=== PATIENT | female | born 1965 | race Caucasian/White ===

== ENCOUNTER 2024-04-26 15:18 | Inpatient (IN) | payer OTHER, SELFPAY ==
[2024-04-26 10:59] VITALS: BP 178/89
--- NOTE | 2024-04-26 11:35 | ED.GENMED ---
History of Present Illness
General
Chief Complaint: Psychiatric Problem
Source: patient and other (Crisis staff)
Exam Limitations: none
Time Seen by Provider: 04/26/24 11:29
Nursing documentation reviewed up to this point in time: agreed with
Travel History
Have you had any contact with someone who has COVID-19?: No
Do you have any symptoms of coronavirus? Fever > 100 degrees, chills, cough, shortness of breath, sore throat, loss of taste or smell, muscle aches, or headache?: No
History of Present Illness
History of Present Illness:
58-year-old female with history of HTN, anemia, pancreatitis, DVT, chronic alcohol use disorder, smoker, presented to [facility] who states her boyfriend dropped her off because she was tearful he may be breaking up with her, Kenn looked at her past
history and as she was feeling out paperwork he noted her shaking and asked her if she had a drink and she told him she had a shot of vodka earlier this morning and when asked if she was in withdrawal and she said 'yes I feel horrible.' Zane states
she also said she has pain in her legs.
Pt presents alert and oriented, a little disheveled, hands tremulous, states 'I am fighting with my boyfriend and he told me to move out and I have no place to go.'
She does complain of pain posterior aspect both thighs, denies chest pain or trouble breathing. She does say she wants to kill herself but has no plan, denies HI.
She feels nauseous but has not vomited. She states she frequently has tremors
Admits to alcohol misuse. Had 'four strong vodka drinks' last night and 'a shot' of vodka this 11 a.m.
States she would like rehab
States although she knows she should not do it she takes 3-4 Aleve a day for generalized pain, states her leg pain is chronic.
She states she has been on Eliquis for 'a few years,' but she talk to her wholesale buyer Dr. Silvestre last week because she was complaining of bruising on her arms and she was told to stop her Eliquis so she stopped it 'a couple days ago.'
Past History
Past History
ED Past Medical History: HTN, Psychiatric (Alcohol use disorder, pancreatitis,), Other (Liver thrombosis) and Other (DVT)
ED Past Surgical History: Gynecological and Other (Breast augmentation/hernia)
Social History
Tobacco: Smoker
Alcohol: Daily
Drug: Marijuana
Personal: Single
Living: with roommate
Employment: Employed ([employer] )
Review of Systems
Review of Systems
Allergies reviewed?: Yes
All Other Systems: ROS reviewed and negative except as documented in HPI and ROS
Constitutional: Denies fever
Respiratory: Denies trouble breathing
Cardiac: Denies chest pain
ABD/GI: Reports nausea; Denies abdominal pain, vomiting, bloody stools or black stools
: Denies dysuria or difficulty voiding
Musculoskeletal: Reports other (pain in both legs)
Skin: Reports no symptoms
Neurological: Reports other (tremors hands); Denies dizzy, headache, weakness or numbness
Phy Exam
Physical Exam
Physical Exam:
GENERAL: No acute distress. A&Ox3.
CONSTITUTIONAL: Afebrile.
EYES: PERRL, conjunctivae normal
Neck: Supple
ENMT: moist mucus membranes, Pharynx nl
RESPIRATORY: Regular respirations, nonlabored, lungs clear.
CARDIOVASCULAR: Regular rate and rhythm, no murmurs, no rubs.
GI: Soft, nontender, normal BS
MUSCULOSKELETAL: Legs are without swelling, redness or warmth, normal ROM, tender to palpation posterior left thigh and right calf. Moves with ease. Well perfused.
SKIN: Warm, dry, pink
PSYCH: Depressed, anxious mood and affect. Mildly dishevelled, interactive and appropriate
NEUROLOGIC: Awake, alert and oriented. Speech clear. No focal neurological deficits. Mild to moderate hand tremors w outstretched hands. Ambulates well with steady gait.
Scores
Withdrawal Assessment of Alcohol
Withdrawal Assessment Completed?: Yes
Nausea and Vomiting: Mild nausea with no vomiting
Tactile Disturbances: None
Tremor: Moderate, with patient's arms extended
Auditory Disturbances: Not present
Paroxysmal Sweats: No sweat visible
Visual Disturbances: Not present
Anxiety: Mild anxiety
Headache, Fullness in Head: Not present
Agitation: Normal activity
Orientation and clouding of sensorium: Oriented and can do serial additions
Total CIWA Score: 6
Alcohol Withdrawal Medication Recommendation: Equal to MSAS Score 0-4. Monitor & re-assess q2hrs, NO MEDICATION NEEDED
Course
Orders/Labs/Results
Orders:
Orders
04/26/24 11:34
0.9% Sodium Chloride 1000 ml [Nss] 1,000 ml IV BOLUS
04/26/24 11:55
Acetaminophen Urgent
Alcohol Urgent
Complete Blood Count/With Diff Urgent
Comprehensive Metabolic Panel Urgent
D-Dimer Urgent
Lipase Urgent
Salicylate Urgent
04/26/24 12:12
Urinalysis Reflex To Culture Urgent
Date Specimen was Collected: 04/26/24
Time Specimen was Collected: 12:10
Urine Drug Abuse Screen Urgent
Date Specimen was Collected: 04/26/24
Time Specimen was Collected: 12:10
04/26/24 14:10
Add On- LAB Routine
Tests Added?: urine Osm, urine sodium
04/26/24 14:21
Admit/Transfer Patient As Directed
Co-Sign Provider:
Level of Care: Inpatient admission
Assign to:: IMU- Intermediate Care
Physician / Group: frank arce
Diagnosis: alcohol withdrawal
Reason for Hospitalization: alcohol withdrawal
Expected length of stay greater than two midnights?: Yes
ELOS- Estimated Length of Stay in days: 3
I certify the patient meets the requirements for IP care: Yes
04/26/24 14:22
Code Status As Directed
Resuscitation Status: Full Code
04/26/24 14:27
Lactate Level [Lactic Acid] Urgent
Blood Culture Q30M
ANMOL Source: Blood/Venous
Specimen Description:
04/26/24 14:31
Add On- LAB Urgent
Tests Added?: Urine sodium, urine osmolality, serum osmolality
04/26/24 14:32
Add On- LAB Urgent
Tests Added?: TSH
04/26/24 14:45
Blood Culture Q30M
ANMOL Source: Blood/Venous
Specimen Description:
04/26/24 14:48
US Abd W Abd Doppler Routine
Comment:
Reason For Exam: hxt of portal htn, portal thrombosis.
04/26/24 14:50
PSYCHIATRY CONSULT Routine
Consulting Provider: Elsa Michelle
Was physician already notified: Yes
04/26/24 14:52
Serum Osmolality Stat
Urine Osmolality Random [Osmolality, Random Urine] Stat
04/26/24 14:54
Urine Sodium Stat
04/26/24 14:55
C difficile Antigen & Toxins Urgent
ANMOL Source: Feces/Stool
Specimen Description:
Norovirus by PCR Stat
ANMOL Source: Feces/Stool
Specimen Description:
Ova & Parasites Giardia/Crypto AG [Giardia/Cryptosporidium Ag] Routine
ANMOL Source: Feces/Stool
Specimen Description:
Stool Culture Routine
ANMOL Source: Feces/Stool
Specimen Description:
Stool For WBC Routine
ANMOL Source: Feces/Stool
Specimen Description:
Yersinia Culture-Stool Stat
ANMOL Source: Feces/Stool
Specimen Description:
Arms, right US [US Periph Venous UPPER Ext RT] Urgent
Comment:
Reason For Exam: pain
04/26/24 15:00
Nicotine [Nicoderm Transdermal] 21 mg TRANSDERM DAILY
04/28/24 11:00
DC Protocol for Telemetry ONCE
Abnormal Lab Results
04/26/24
11:55
WBC 16.2 H 10^3/uL
(4.8-10.8)
RBC 3.99 L 10^6/uL
(4.20-5.40)
Hgb 9.8 L g/dL
(12.0-16.0)
Hct 30.6 L %
(37.0-47.0)
MCV 76.7 L fL
(81.0-99.0)
MCH 24.6 L pg
(27.0-31.0)
MCHC 32.0 L g/dL
(33.0-37.0)
RDW 17.0 H %
(11.5-14.5)
Abs Immat Gran (auto) 0.1 H 10^3/uL
(0-0.05)
Absolute Neuts (auto) 13.1 H 10^3/uL
(1.4-6.5)
Absolute Monos (auto) 1.8 H 10^3/uL
(0.1-0.6)
Neutrophils % 81.0 H %
(42.2-75.2)
Lymphocytes % 7.4 L %
(20.5-51.1)
Monocytes % 10.8 H %
(1.7-9.3)
Sodium 125 L mmol/L
(135-145)
Chloride 90 L mmol/L
(98-107)
Glucose 112 H mg/dl
(70-99)
AST 45 H U/L
(14-36)
Alkaline Phosphatase 145 H U/L
(38-126)
Salicylates < 1.0 L mg/dl
(2.0-20.0)
Acetaminophen < 10 L ug/ml
(10-30)
04/26/24 11:55
04/26/24 11:55
Vital Signs
Initial and Last Documented VS:
Initial Vital Signs
Temp Pulse Resp BP Pulse Ox
98.3 F 97 18 178/89 98
04/26/24 10:59 04/26/24 10:59 04/26/24 10:59 04/26/24 10:59 04/26/24 10:59
Last Documented Vital Signs
Temp Pulse Resp BP Pulse Ox
98.3 F 97 18 178/89 98
04/26/24 10:59 04/26/24 10:59 04/26/24 10:59 04/26/24 10:59 04/26/24 10:59
MDM/Problems Addressed
Differential Diagnosis Includes:
alcohol withdrawal, depression with SI, homelessness
MDM/Problems Addressed:
58-year-old female with history of HTN, anemia, pancreatitis, DVT, chronic alcohol use disorder, smoker, presented to crisis who states her boyfriend dropped her off because she was tearful he may be breaking up with her, Kenn looked at her past
history and as she was feeling out paperwork he noted her shaking and asked her if she had a drink and she told him she had a shot of vodka earlier this morning and when asked if she was in withdrawal and she said 'yes I feel horrible.' Zane states
she also said she has pain in her legs.
Pt presents alert and oriented, a little disheveled, hands tremulous, states 'I am fighting with my boyfriend and he told me to move out and I have no place to go.'
She does complain of pain posterior aspect both thighs, denies chest pain or trouble breathing. She does say she wants to kill herself but has no plan, denies HI.
She feels nauseous but has not vomited. She states she frequently has tremors
Admits to alcohol misuse. Had 'four strong vodka drinks' last night and 'a shot' of vodka this 11 a.m.
States she would like rehab
States although she knows she should not do it she takes 3-4 Aleve a day for generalized pain, states her leg pain is chronic.
She states she has been on Eliquis for 'a few years,' but she talk to her wholesale buyer Dr. Silvestre last week because she was complaining of bruising on her arms and she was told to stop her Eliquis so she stopped it 'a couple days ago.'
MSAS score 0-4 no medication indicated.
1:30 PM:
CBC: WBC 16.2, hemoglobin 9.8 consistent with her baseline
CMP: Sodium 125, chloride 90, a mildly elevated AST and alk phos
Lipase normal
UA negative
UDS negative
D-dimer within normal limits
2:00 p.m.
In to re evaluate: pt states she feels better as she spoke with her boyfriend and he is not going to kick her out. She no longer feels like she wants to kill herself
Plan: Admit: Acute hyponatremia
Urine sodium and osmolality, serum osmolality pending, TSH pending
*Critical Care Note
Total Time (30-74mins, 75-104mins- exclusive of procedures): Not Applicable
ED Attending Note
-
Portions of this chart may have been created with voice recognition software.� Occasional wrong word or��sound alike� substitutions may have occurred due to the inherent limitations of voice recognition software.
Discharge Plan
Departure
Patient Disposition: Admit
Date of Disposition: 04/26/24
Time of Disposition: 13:56
Admit to: Med/Surg
Presentation/result/management discussed w/ accepting MD/DO: Hospitalist
Condition: Fair
Discharge Problem:
Acute hyponatremia, alcohol misuse disorder
Prescriptions:
No Action
omeprazole 20 mg Tablet,Delayed Release (Dr/Ec)
20 mg PO DAILY
naproxen sodium [Aleve] 220 mg Tablet
440 mg PO DAILYPRN PRN (Reason: mild pain)
atenolol 50 mg Tablet
50 mg PO DAILY
simethicone [Gas Relief 80 (simethicone)] 80 mg Tablet,Chewable
80 mg PO TIDPRN PRN (Reason: gas relief)
tizanidine 4 mg Tablet
4 mg PO Q8HPRN PRN (Reason: muscle spasms)
lisinopril 40 mg Tablet
40 mg PO DAILY
Eliquis 2.5 mg Tablet
2.5 mg PO BID
Patient Comments:
patient claims medication was stopped by provider
Referrals:
UNKNOWN,NO INTERVIEW [Family Provider] -
Interventions
Interventions:
*Risk Screen - Suicide Last Done: 04/26/24 10:59
*General Assessment Last Done: 04/26/24 10:59
*Neglect/Abuse Screening Last Done: 04/26/24 10:59
Discharge Date and Time
Print Language: KENYAN
[2024-04-26] MEDS: NSS 1000 IV (12:02)
[2024-04-26 12:15] LABS: % Basophils 0.4 % (0-2); % Immature Granulocytes 0.4 % (0-0.5); % Lymphocytes 7.4 % (20.5-51.1); % Monocytes 10.8 % (1.7-9.3); Absolute Basophils 0.1 10^3/uL (0-0.2); Absolute Immature Granulocytes 0.1 10^3/uL (0-0.05); Absolute Lymphocytes 1.2 10^3/uL (1.2-3.4); Absolute Monocytes 1.8 10^3/uL (0.1-0.6); Absolute Neutrophils 13.1 10^3/uL (1.4-6.5); Hematocrit 30.6 % (37.0-47.0); Hemoglobin 9.8 g/dL (12.0-16.0); Mean Corpuscular Hgb 24.6 pg (27.0-31.0); Mean Corpuscular Volume 76.7 fL (81.0-99.0); Mean Platelet Volume 10.1 fL (7.4-10.4); Nucleated Red Blood Cells % 0 %; Platelet Count 272 10^3/uL (130-400); Red Blood Cell Count 3.99 10^6/uL (4.20-5.40); White Blood Cell Count 16.2 10^3/uL (4.8-10.8)
[2024-04-26 12:22] LABS: Urine Albumin Negative (Neg - Trace); Urine Bilirubin Negative (Negative); Urine Character Clear (Clear); Urine Color Yellow; Urine Glucose Negative (Negative); Urine Ketone Negative (Negative); Urine Leukocyte Negative (Negative); Urine Nitrite Negative (Negative); Urine Occult Blood Negative (Negative); Urine Urobilinogen Negative (Neg - 1+)
[2024-04-26 12:27] LABS: D-Dimer 0.38 ug/mlFEU (0.00-0.50)
[2024-04-26 12:34] LABS: ALT (SGPT) 28 U/L (0-35); AST (SGOT) 45 U/L (14-36); Acetaminophen < 10 ug/ml (10-30); Albumin 4.4 g/dl (3.5-5.0); Alkaline Phosphatase 145 U/L (38-126); Blood Urea Nitrogen 8 mg/dl (7-17); Calcium 9.7 mg/dl (8.4-10.2); Carbon Dioxide 23 mmol/L (22-30); Chloride 90 mmol/L (98-107); Glucose 112 mg/dl (70-99); Lipase 101 U/L (23-300); Potassium 4.5 mmol/L (3.5-5.1); Salicylate < 1.0 mg/dl (2.0-20.0); Sodium 125 mmol/L (135-145); Total Bilirubin 0.6 mg/dl (0.2-1.3); Total Protein 7.1 g/dl (6.3-8.2); eGFR > 60.00
[2024-04-26 12:35] LABS: Alcohol None Detected
[2024-04-26 12:53] LABS: Amphetamines Negative (Negative); Barbiturates Negative (Negative); Benzodiazepines Negative (Negative); Buprenorphine Negative (Negative); Cocaine Negative (Negative); Marijuana Negative (Negative); Methadone Negative (Negative); Methamphetamines Negative (Negative); Opiates Negative (Negative); Phencyclidine Negative (Negative); Tricyclic Antidepressants Negative (Negative)
--- NOTE | 2024-04-26 14:08 | HPS.HSE ---
Family Physician
-
Family Physician: NO INTERVIEW UNKNOWN
Chief Complaint
-
wants to
History of Present Illness
58-year-old female with history of HTN, anemia, pancreatitis, DVT, chronic alcohol use disorder, smoker, presented to [facility] who states her boyfriend dropped her off because she wanted to . her gets mad with her for everything she does.
patient denied SILVER, dizzy or syncopal episode. denied fever. stated chills. denied chest pain, sob. stated abdominal pain with chronic diarrhea. denied dysuria or hematuria. patient Admits to alcohol misuse. Had 'four strong vodka drinks' last night
and 'a shot' of vodka this 11 a.m.
she stopped eliquis few days ago as it was giving her bruises.
noted sodium of 125. received normal saline in ER. admitting for further management.
Medical History
Past Medical History
Past Medical History: Reports Other
Additional Past Medical History:
portal htn
irone def anemia
htn
alcoholic pancreatitis
right UE DVT with clot removal
Past Surgical History: Reports Other
Additional Past Surgical History:
hernia repair
Social History
Tobacco: Smoker
Alcohol: Daily
Drug: None
Family History
Family History: Not pertinent
Allergies / Home Medications
Allergies reflects when Allergies were last updated in [employer].
Home Medications with original date entered in [employer]
Allergy/Medication List:
Allergies
Allergy/AdvReac Type Severity Reaction Status Date / Time
No Known Allergies Allergy Verified 04/26/24 10:59
Home Medications
apixaban 5 mg tablet (Eliquis) 5 mg PO BID Blood clot prevention/tx 05/29/22
bisoprolol 5 mg-hydrochlorothiazide 6.25 mg tablet 1 tab PO DAILY Blood pressure 05/29/22
fluticasone propionate 50 mcg/actuation nasal spray,suspension 1 spray intranasal BID Allergies 07/15/22
lisinopril 20 mg tablet 20 mg PO DAILY Blood pressure 05/29/22
loratadine 10 mg tablet 10 mg PO DAILY PRN allergies 05/29/22
omeprazole 20 mg tablet,delayed release 20 mg PO DAILY Gastrointestinal issue 05/29/22
tizanidine 2 mg tablet 2 mg PO Q6H PRN muscle spasms 05/29/22
gabapentin 300 mg capsule 300 mg PO HS #30 caps 06/01/22
Review of Systems
-
Constitutional: Reports No Symptoms
EENT: Reports No Symptoms
Respiratory: Reports No Symptoms
Cardiac: Reports No Symptoms
Abdomen/GI: Reports No Symptoms
: Reports No Symptoms
Musculoskeletal: Reports No Symptoms
Skin: Reports No Symptoms
Neurological: Reports No Symptoms
Endocrine: Reports No Symptoms
Hematologic/Lymphatic: Reports No Symptoms
Psych: Reports No Symptoms
Physical Exam
Vital Signs
Vital Signs
Temp Pulse Resp BP Pulse Ox
98.3 F 97 18 178/89 98
04/26/24 10:59 04/26/24 10:59 04/26/24 10:59 04/26/24 10:59 04/26/24 10:59
Physical Exam
General: Well Developed, Well Nourished and No Apparent Distress
HEENT: NormoCephalic, Moist mucous membranes and Atraumatic
Respiratory: Clear
Cardiac: S1/S2 and Regular Rhythm; No Murmur or Rub
GI: Soft, Non Tender, Non Distended and Normal Bowel Sounds; No Organomegaly
Rectal: Deferred by Provider
Musculoskeletal: No Clubbing, No Cyanosis and No Edema
Skin: No Rash
Neuro: AO x 3 and Nonfocal/grossly intact
Psych: Calm
Laboratory Results
-
04/26/24 11:55
04/26/24 11:55
Laboratory Results
Total Bilirubin 0.6 mg/dl (0.2-1.3) 04/26/24 11:55
AST 45 U/L (14-36) H 04/26/24 11:55
ALT 28 U/L (0-35) 04/26/24 11:55
Alkaline Phosphatase 145 U/L (38-126) H 04/26/24 11:55
Lipase 101 U/L (23-300) 04/26/24 11:55
Data Reviewed
-
Lab Data: Labs Reviewed by me
Impression/Plan
-
#Hyponatremia from alcohol abuse
-nA 125
-Received 1 L normal saline in the ER
- initiated on fluid restriction
-Monitor BMP in a.m.
# Complaint of abdominal pain/diarrhea for 1 year
-Will obtain stool for cultures, C. difficile, parasites, norovirus
#alcohol use disorder
-had 4 shots of vodka last night, one in the morning
-monitor MSAS score
-alcohol protocol initiated
#leukocytosis likely stress reaction
-wbc 16.2
-UA negative, afebrile
#anemia of chronic iron deficiency anemia
-hgb 9.8
-no active bleeding
-ctm
#poral vein thrombosis/right upper extremity DVT
-Eliquis continued
-Will obtain ultrasound of right upper extremities
-also abdomen ultrasound with Doppler
-
#hx Essential Hypertension
-Blood pressure stable in ER
-Atenolol continued lisinopril continued
# GERD
- PPI continued
#Nicotine Dependence
-Continue nicotine patch
-Encourage smoking cessation
#DVT proph: SCDs
#CODE status
-full code
[2024-04-26 14:52] LABS: Lactic Acid 1.1 mmol/L (0.7-2.0)
[2024-04-26] MEDS: NICODERM TRANSDERMAL 21 MG TRANSDERM (14:56)
--- NOTE | 2024-04-26 15:03 | W.PN.UPDATE ---
Update Note
Progress Note Update
HPI: 58-year-old female with history of HTN, anemia, pancreatitis, DVT in RUE, chronic alcohol use disorder, smoker, who brought in by her boyfriend because she wanted to . Patient admitted to suicide ideation.
She appears anxious with hand tremor. She states that her last alcoholic drink was in the morning.
She follows with day haul youth supervisor outpt for presumed RUE DVT. She stopped taking eliquis a few days ago as it was giving her bruises.
In the ED, her sodium level was noted to be low at 125. She was given normal saline and admitted for further management.
A/P:
# Hyponatremia likely from alcohol abuse
Sodium level 125
follow urine Osm and sodium level.
Fluid restrict
Follow BMP
# diarrhea, ?subacute
Check stool studies with stool cultures, C. difficile, parasites, norovirus
# Alcohol use disorder
# Alcohol withdrawal
# Suicide ideation
monitor MSAS score
Psych CS
# leukocytosis likely stress reaction
Follow blood Cx
UA negative, afebrile
# chronic iron deficiency anemia
# ?h/o poral vein thrombosis
# h/o right upper extremity DVT
Cont Eliquis
Check RUE US
Check Abd US to eval PV thrombosis
# Essential Hypertension
Blood pressure stable in ER
Cont Atenolol and lisinopril with hold parameter
# GERD
PPI continued
# Nicotine Dependence
Continue nicotine patch
Encourage smoking cessation
DVT proph: SCDs
CODE status-full code
[2024-04-26 16:21] LABS: Urine Sodium 16 mmol/L (30-90)
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
[2024-04-26 16:45] VITALS: BP 167/74
[2024-04-26 16:49] LABS: Osmolality Serum 94 mOsm/kg (275-300)
[2024-04-26 16:49] LABS: Osmolality Urine 258 mOsm/kg (300-900)
[2024-04-26] MEDS: ATIVAN 1 MG IV (17:10)
[2024-04-26] MEDS: NSS (PRESERVATIVE FREE) 0.5 ML IV (17:11)
[2024-04-26 17:13] LABS: TSH 0.83 uIU/ml (0.47-4.68)
[2024-04-26 17:18] VITALS: BP 129/118
[2024-04-26 17:23] LABS: GGTP 132 U/L (12-43); Magnesium 1.6 mg/dl (1.6-2.3); Phosphorus 4.5 mg/dl (2.5-4.5)
[2024-04-26 17:29] LABS: B-Hydroxybutyrate 0.52 mmol/L (0.02-0.27)
[2024-04-26] MEDS: PHENOBARBITAL 104 MG IV (17:46)
[2024-04-26 18:39] LABS: INR 1.16; PT 14.9 Sec (11.4-14.6)
[2024-04-26 18:40] LABS: APTT 27.7 Sec (23.4-35.0)
[2024-04-26 18:52] VITALS: BP 144/77
--- NOTE | 2024-04-26 19:08 | PTCARENOTE ---
Received from ED, IMU monitors placed. NSR, 144/77 MSAS 10 AAOx3, She is extremely tremulous, unsteady wanting to sit on commode. No stool just passing flatus. Back to bed voided on bedpan after sedation given. Abdomen distended, uncomfortable
says she has frequency voids at home- Bladder scanned >366. Will pass on to monitor. No nausea or vomiting but has been recently. Blood work and EKG obtained. Orders noted- IV Ativan given and IV Phenobarb pb. Now resting quietly. Admission
completed bedside. Denies SI at this time was hallucinating hearing voices and music intermittently.
[2024-04-26] MEDS: THIAMINE INJECTION 200 MG IV (19:47)
[2024-04-26 20:00] VITALS: BP 146/85
--- NOTE | 2024-04-26 20:14 | PTCARENOTE ---
Assumed care of Pt from previous RN. Pt currently ETOH withdraw. MSAS's. 20:00 score was 4. Pt calm, resting in bed watching TV. RR even and unlabored. HR 100. Pt voided 300ml, yellow urine using BSC. Abdomen round non tender. Pt instructed to not
exit bed independently. Call rebolledo in reach.
--- NOTE | 2024-04-26 20:36 | PTCARENOTE ---
RN attempted to administer ordered PM Eliquis, which is listed as a home med. Pt stated her 'doctor told her to stop taking that', this NR asked when and what doctor instructed her to stop, Pt stated her 'home doctor about four days ago', when asked
why the pt could not recall the reasoning. This RN informed the Pt the med is on her home list of meds and listed for hx of RUE DVT. Her H&P states she had clot removal. Pt continues to insist her out Pt MD instructed her not to take the med anymore
and refuses to take the med. Medication held by this RN.
[2024-04-26] MEDS: ATIVAN 1 MG PO ×2 (21:18→23:49)
[2024-04-26] MEDS: PHENOBARBITAL 97.5 MG IV (22:16)
[2024-04-26 22:26] VITALS: BP 148/86
--- NOTE | 2024-04-26 22:31 | W.PN.UPDATE ---
Addendum entered and electronically signed by ANDIE Gustafson 04/27/24 05:20:
Patient has wheezing and cough in am, denied SOB of breathing. Patient is a smoker will get chest x-ray and add duo nebs as needed for SOB or wheezing
Original Note:
Update Note
Progress Note Update
Reported by the nursing staff that the patient has BM with dark maroon stool that mixed with blood clots. Vital signs within normal limits.
-Patient currently on Eliquis and she is refused to take it earlier of the shift. (Abdomen ultrasound shows the imaged portions of the portal vein appeared to be patent with hepatopedal flow & RUE/US neg for DVT) Will place Eliquis on hold.
- Switch pantoprazole from oral to IV
-Hgb level 9.8 on admission will get stat h&h and trending.
-GI consult.
--- NOTE | 2024-04-26 22:36 | PTCARENOTE ---
Pt had small loose dark red maroon, with small cots BM . Pt states she has light bloody stools and streaks of light red blood on paper when wiping at home frequently and has hemorrhoids. Pt abdomen round and distended, non tender. MAIL ORDER SORTER notified of
assessment finding. Order received for IV Protonix, stat labs, and to heme test stools as directed.
[2024-04-26] MEDS: NSS (PRESERVATIVE FREE) 10 ML IV (23:07)
[2024-04-26 23:08] LABS: Hematocrit 27.8 % (37.0-47.0); Hemoglobin 9.1 g/dL (12.0-16.0)
[2024-04-26] MEDS: PROTONIX IV 40 MG IV (23:08)
[2024-04-27] VITALS (12 sets, daily range): BP systolic 110–139; BP diastolic 62–91
[2024-04-27] MEDS: ATIVAN 1 MG PO ×3 (04:28→16:20)
[2024-04-27 05:00] LABS: Hematocrit 28.7 % (37.0-47.0); Hemoglobin 9.1 g/dL (12.0-16.0); Mean Corp Hgb Conc. 31.7 g/dL (33.0-37.0); Mean Corpuscular Hgb 24.7 pg (27.0-31.0); Mean Corpuscular Volume 77.8 fL (81.0-99.0); Mean Platelet Volume 10.1 fL (7.4-10.4); Platelet Count 226 10^3/uL (130-400); Red Blood Cell Count 3.69 10^6/uL (4.20-5.40); Red Cell Dist. Width 17.2 % (11.5-14.5); White Blood Cell Count 10.5 10^3/uL (4.8-10.8)
[2024-04-27 05:18] LABS: Blood Urea Nitrogen 8 mg/dl (7-17); Calcium 9.1 mg/dl (8.4-10.2); Carbon Dioxide 25 mmol/L (22-30); Chloride 100 mmol/L (98-107); Glucose 95 mg/dl (70-99); Potassium 4.4 mmol/L (3.5-5.1); Sodium 132 mmol/L (135-145); eGFR > 60.00
[2024-04-27] MEDS: ROBITUSSIN 100 MG PO (06:18)
--- NOTE | 2024-04-27 06:26 | PTCARENOTE ---
Pt with dry occasional cough this AM and expiratory wheezing. Pt denies SOB, chest tightness. RR 20, sat 92% RA. WEB OPERATIONS SPECIALIST notified. order received for CXR in AM.
--- NOTE | 2024-04-27 07:56 | W.PN.HOSP.TC ---
Today's Communication/Plan
-
see A/P
Assessment / Plan
Assessment / Plan
HPI: 58-year-old female with history of HTN, anemia, pancreatitis, DVT in RUE, chronic alcohol use disorder, smoker, who brought in by her boyfriend because she wanted to . Patient admitted to suicide ideation.
She appears anxious with hand tremor. She states that her last alcoholic drink was in the morning.
She follows with waste salvager outpt for presumed RUE DVT. She stopped taking eliquis a few days ago as it was giving her bruises.
In the ED, her sodium level was noted to be low at 125. She was given normal saline and admitted for further management.
A/P:
# Hyponatremia likely from alcohol abuse and possible SIADH
Sodium level improved from 125 to 132
cont fluid restrict
Follow BMP
# diarrhea, ?subacute
Follow stool studies with stool cultures, C. difficile, parasites, norovirus
# Alcohol use disorder
# Alcohol withdrawal
# Suicide ideation
monitor MSAS score
Phenobarb taper
Psych CS
# leukocytosis likely stress reaction, resolved
Follow blood Cx
UA negative, afebrile
# GIB with maroon stool
# chronic iron deficiency anemia
COAGULATING BATH MIXER Eliquis on hold
Cont Protonix IV BID
Follow iron panel, B12, folate level
GI CS
# wheezing and cough 6/13 am, likely COPD exacerbation
Follow CXR report
duonebs ATC and PRN
Start Decadron 4 mg IV BID
# ?h/o poral vein thrombosis
# h/o right upper extremity DVT
Cont Eliquis
RUE US no DVT
Abd Doppler also noted patent portal vein
Pt follows up with a 'cancer doctor' outpatient, informed her to cont to follow outpt for Eliquis instruction
# Essential Hypertension
Blood pressure stable in ER
Cont Atenolol and lisinopril with hold parameter
# GERD
PPI continued
# Nicotine Dependence
Continue nicotine patch
Encourage smoking cessation
DVT proph: SCDs
CODE status-full code
DW RN
total time spent 51 min
Anticipated Discharge: > 48 hours
Subjective/Interval History
-
Date of Service: April 27, 2024
Objective Data
-
Labs:
Laboratory Results
04/26/24 04/27/24 04/27/24
23:03 04:26 04:30
WBC 10.5
Hgb 9.1 L 9.1 L Cancelled
Hct 27.8 L 28.7 L Cancelled
Plt Count 226
Sodium 132 L
Potassium 4.4
Chloride 100
Carbon Dioxide 25
BUN 8
Creatinine 0.9
Glucose 95
Calcium 9.1
Vital Signs:
Vital Signs
Temp Pulse Resp BP Pulse Ox
36.9 C 95 23 138/69 91
04/27/24 03:42 04/27/24 01:30 04/27/24 01:30 04/27/24 00:00 04/27/24 01:30
I&O
04/26/24 04/27/24 04/28/24
06:59 06:59 06:59
Intake Total 240 / 240
Output Total 300 / 300
Balance -60 / -60
Review of Systems
-
All other systems: Reviewed and negative
Physical Exam
-
General: Well Developed, Well Nourished, No Apparent Distress, Comfortable and Conversant; Negative Respiratory Distress
HEENT: Normocephalic, Atraumatic, Nose Appears Normal and Ears Appear Normal; Negative Oxygen
Respiratory: Clear to Auscultation, Wheezes and Non Labored Respirations; Negative Accessory Resp Muscle Use
Cardiac: Regular Rhythm and S1/S2
GI: Soft, Nontender, Nondistended and Normal Bowel Sounds
Skin: Warm and Dry
Neuro: Awake and Alert
Psych: Calm and Intact Judgement/Insight (somewhat)
Data Reviewed
-
Diagnostic Radiology: Report Reviewed by me
Medical Tests (Nuc Med, Echo etc): Report Reviewed by me (US)
Labs: Labs Reviewed by me
[2024-04-27 08:18] LABS: Iron 37 ug/dl (37-170)
[2024-04-27 08:27] LABS: Percent Saturation 8 % (20-50); Total Iron Binding Capacity 454 ug/dl (265-497)
[2024-04-27] MEDS: PHENOBARBITAL 97.5 MG IV ×3 (08:35→21:06)
[2024-04-27] MEDS: PROTONIX IV 40 MG IV ×2 (08:36→21:11)
[2024-04-27] MEDS: NSS (PRESERVATIVE FREE) 10 ML IV ×2 (08:36→21:11)
[2024-04-27 08:54] LABS: Ferritin 8.2 ng/ml (11.1-264.0)
[2024-04-27] MEDS: DECADRON 4 MG IV ×2 (08:56→21:10)
[2024-04-27] MEDS: ZESTRIL 40 MG PO (08:56)
[2024-04-27] MEDS: THIAMINE INJECTION 200 MG IV ×2 (08:56→21:09)
[2024-04-27] MEDS: TENORMIN 50 MG PO (08:57)
[2024-04-27] MEDS: NICODERM TRANSDERMAL 21 MG TRANSDERM (08:57)
[2024-04-27] MEDS: FOLVITE 1 MG PO (08:57)
[2024-04-27 09:25] LABS: Folate > 20.0 ng/ml (2.76-20); Vitamin B12 916 pg/ml (239-931)
--- NOTE | 2024-04-27 11:10 | PTCARENOTE ---
Assumed care of patient at beginning of this shift; cannot verify accuracy of vital signs prior to 0700. Patient drowsy but calm on initial assessment. She has been OOB to commode without difficulty; tolerated breakfast. Currently sleeping on and
off this morning. Remains on phenobarb taper. See worklist for full assessment, vital signs and MSAS; see MAR for med administration.
[2024-04-27] MEDS: DUONEB 3 ML INH ×3 (11:13→20:03)
--- NOTE | 2024-04-27 11:19 | PTCARENOTE ---
Patient was ordered Q6h H&H on previous shift. H&H 9.1/27.8 and 9.1/.7. Order then was cancelled. Confirmed with Dr Elizalde that no further Q6h H&H needed for today.
--- NOTE | 2024-04-27 11:41 | CM ---
Addendum entered by Sofia Dee RN 04/27/24 16:48:
Barrie SPENCER met with patient and his impression was that patient is in denial about her alcohol use. She declined Inpatient Etoh Rehab, and agreed to outpatient resources, and possibly will do AA.
Plan home with outpatient Etoh resources from [facility].
Original Note:
Patient with Dx hyponatremia, diarrhea, Alcohol use disorder, GIB. Room air. Receiving IV Decadron, IV Phenobarb. Seen by Psych. MSAS per nursing.
Met with patient who resides with her SO Kobi in a first floor apartment with 1 VIC.
The patient has been independent in ADLs and ambulation.
She has no DME or prior VN.
PCP - Jaclyn Rajan
Pharmacy - [facility]
Substance Abuse Consult:
The patient says she has not participated in any Etoh programs previously. She agrees to have [facility] meet with her.
Referral to [facility] Sood, who will see the patient today.
Plan follow up with [facility].
--- NOTE | 2024-04-27 11:42 | CON.GI ---
Addendum entered and electronically signed by Laura Hoyt DO 04/27/24 14:39:
Patient seen and examined independently of AIR EXPORT COORDINATOR. I agree with her note with my additions below
Floresita is a 58-year-old female with heavy alcohol use/chronic alcoholic who was brought in by her boyfriend for suicidal ideation. GI was called because of burgundy clots last night. She has been hemodynamically stable. Her hemoglobin did not
drop significantly and on admission was 9.8 down to 9.1 today. Her platelet count is 226, INR 1.1, BUN 8, creatinine 0.9, ferritin 8, AST 45, GGT 132, alkaline phosphatase 145, ALT 28. Apparently she has a questionable portal vein thrombus and had
a right upper extremity DVT and was on Eliquis managed by a hitcher in [place]. She denies known cirrhosis. Patient sodium on admission was also low at 125 which improved to 132 after IV fluids
States she has occasional dysphagia but no forced regurgitation, does have heartburn daily despite taking Prilosec 40 mg once daily, she takes Aleve regularly and drinks a good amount of vodka daily. States her bowel habits are generally 2-3 times
a day sometimes loose but always brown. She denies a history of GI bleed but was here in 2021 with significant anemia with a hemoglobin of 6.6. At that time she underwent an endoscopy and colonoscopy in May 2022 which showed mild portal
gastropathy confirmed on biopsy, small bowel negative for celiac, colonoscopy was done showing 1 small transverse adenoma. She underwent an outpatient capsule endoscopy which showed a gastric ulcer questionably a Lyndon ulceration otherwise normal
small bowel. She had no follow-up endoscopy after that capsule endoscopy. The last hemoglobin we have on record is from that admission in 2021 when she was discharged 8.6.
Currently she is being treated by psychiatry for questionable alcohol withdrawal. No seizure history. She appears alert awake and coherent.
On exam her abdomen is soft, nontender. Rectal exam done by me shows brown loose but grossly heme positive stool
# Painless burgundy stools overnight with no significant drop in hemoglobin and currently hemodynamically stable -who has been off Eliquis for couple of days
-- Etiology of bleeding could be portal hypertensive gastropathy versus NSAID induced ulcer versus diverticular versus angioectasias versus other
-- Last EGD, colonoscopy and capsule done in 2021 showed portal hypertensive gastropathy and the capsule endoscopy done outpatient showed a possible Lyndon ulcer
-- She takes 40 mg Prilosec as an outpatient also takes Aleve regularly
-- Will do an endoscopy tomorrow
-- No current need for transfusion, clear liquids are fine, continue twice daily PPI. Currently not on octreotide or antibiotics
-- I did review her Doppler ultrasound from 04/26/2024 showing hepatic steatosis and the portal vein did appear to be patent, spleen was within normal limits
-- NPO after midnight, for EGD
Addendum entered and electronically signed by ANDIE Cortez 04/27/24 13:47:
Pt with also hx NSAID use
Original Note:
Consultation
-
Date/Time Consultation Requested: 04/26/24 2240
Date/Time Consultation Performed: 04/27/24 1150
Requesting Provider: ANDIE Gustafson
Performing Provider: ANDIE Romero, Laura Hoyt DO
Reason for Consultation: rectal bleeding
Medical History
Chief Complaint / HPI
Chief Complaint: maroon stool
History of Present Illness:
56-year-old female with reported history of liver Portal vein thrombosis/DVT on Eliquis, hypertension, anemia, pancreatitis, alcohol abuse presents to ER by boyfriend with suicidal ideations. On admission noted with hyponatremia, Maroon stool
with concern for GI bleeding. In reviewing with patent she admits to work up in 2021 for anemia. She had recent black stools with alternating diarrhea and constipation and chronic GERD. She denies dysphagia, odynophagia, nausea, vomiting, or
abdominal pain. Last EGD 2021 normal esophagitis, portal HTN gastropathy bx portal HTN gastropathy colonoscopy- 2021 4 mm polyps in transverse colon, 3 polyps in sigmoid bx tubular adenoma, hyperplastic polyps. she also completed capsule with
ulcer in stomach and perhaps lyndon ulcer. SB normal. On admission hbg 9.8 with MCV 76.7 Na 125, bili 0.6, AST 45, ALT 28, alk phos 145.
US with hepatic steatosis, limited vascular eval. portal vein appears patent with heptopedal flow.
Past Medical History
Past Medical History: HTN and Other (portal vein thrombosis, alcohol use, pancreatitis, anemia, DVT RUE)
Past Surgical History: and Other (Hernia repair, breast augmentation)
Social History
Tobacco: Smoker
Alcohol: Daily (2-3 shots of liquor every day)
Drug: None
Personal: Other (boyfriend )
Living: Other (boyfriend )
Employment: Employed
Family History
Family History: Cancer (Prostate cancer in father)
Allergies / Home Medications
Allergy/AdvReac Type Severity Reaction Status Date / Time
No Known Allergies Allergy Verified 04/26/24 10:59
�Medication �Instructions �Recorded
omeprazole 20 mg tablet,delayed 20 mg PO DAILY Gastrointestinal 05/29/22
release issue
apixaban 2.5 mg tablet (Eliquis) 2.5 mg PO BID Blood Clot 04/26/24
Prevention/Tx
atenolol 50 mg tablet 50 mg PO DAILY Blood Pressure 04/26/24
lisinopril 40 mg tablet 40 mg PO DAILY Blood Pressure 04/26/24
naproxen sodium 220 mg tablet 440 mg PO DAILYPRN PRN mild pain 04/26/24
(Aleve)
simethicone 80 mg chewable tablet 80 mg PO TIDPRN PRN gas relief 04/26/24
(Gas Relief 80 (simethicone))
tizanidine 4 mg tablet 4 mg PO Q8HPRN PRN muscle spasms 04/26/24
Review of Systems
-
History Source: Patient
Constitutional: Reports No Symptoms
EENT: Reports No Symptoms
Respiratory: Reports Trouble Breathing (at times with stress )
Cardiac: Reports Chest Pain (at times with stress )
: Reports No Symptoms
Musculoskeletal: Reports No Symptoms
Skin: Reports No Symptoms
Neurological: Reports Weakness
Endocrine: Reports No Symptoms
Hematologic/Lymphatic: Reports Bleeding
Vital Signs
Temp Pulse Resp BP Pulse Ox
98.6 F 81 16 135/80 96
04/27/24 08:00 04/27/24 11:18 04/27/24 11:18 04/27/24 10:00 04/27/24 11:18
Physical Exam
Exam
General: Well Developed, Well Nourished and No Apparent Distress
HEENT: Normocephalic and Anicteric
Respiratory: Clear
Cardiac: Regular Rhythm
GI: Soft, Non Distended and Tender
Musculoskeletal: No Clubbing
Skin: Warm and Dry
Neuro: Awake, Alert and AO x 3
Psych: Calm
Results
WBC 10.5 10^3/uL (4.8-10.8) 04/27/24 04:26
Hgb Cancelled 04/27/24 04:30
Hct Cancelled 04/27/24 04:30
MCV 77.8 fL (81.0-99.0) L 04/27/24 04:26
Plt Count 226 10^3/uL (130-400) 04/27/24 04:26
Absolute Neuts (auto) 13.1 10^3/uL (1.4-6.5) H 04/26/24 11:55
PT 14.9 Sec (11.4-14.6) H 04/26/24 18:20
INR 1.16 04/26/24 18:20
APTT 27.7 Sec (23.4-35.0) 04/26/24 18:20
Sodium 132 mmol/L (135-145) L 04/27/24 04:26
Potassium 4.4 mmol/L (3.5-5.1) 04/27/24 04:26
Chloride 100 mmol/L (98-107) 04/27/24 04:26
Carbon Dioxide 25 mmol/L (22-30) 04/27/24 04:26
BUN 8 mg/dl (7-17) 04/27/24 04:26
Creatinine 0.9 mg/dL (0.6-1.0) 04/27/24 04:26
Calcium 9.1 mg/dl (8.4-10.2) 04/27/24 04:26
Total Bilirubin 0.6 mg/dl (0.2-1.3) 04/26/24 11:55
AST 45 U/L (14-36) H 04/26/24 11:55
ALT 28 U/L (0-35) 04/26/24 11:55
Alkaline Phosphatase 145 U/L (38-126) H 04/26/24 11:55
Lipase 101 U/L (23-300) 04/26/24 11:55
Diagnostic Image Results:
04/26/24 US Abd W Abd Doppler
1. Hepatic steatosis.
2. Somewhat limited vascular evaluation due to body habitus and patient positioning but the imaged portions of the portal vein appeared to be patent with hepatopedal flow. Cross-sectional imaging can be performed for more complete evaluation if
clinically indicated.
04/26/24 - US doppler
No sonographic evidence for right upper extremity venous thrombosis.
06/2022 MR Abdomen W/o & W Contrast
Cavernous transformation of the portal vein with irregularity and small caliber of the main portal vein suggesting chronic thrombosis and/or stenosis.
Prior GI Procedures:
EGD: 05/2022 fregoso - Normal esophagus.
- Portal hypertensive gastropathy. Biopsied.
- Normal examined duodenum. Biopsied.
Colonoscopy: 2021 fregoso 4 mm polyps in transverse colon, 3 polyps in sigmoid bx tubular adenoma, hyperplastic polyps.
capsule: 2021 with ulcer in stomach and perhaps lyndon ulcer. SB normal.
Assessment / Plan
-
56-year-old female with reported history of liver Portal vein thrombosis/DVT on Eliquis, hypertension, anemia, pancreatitis, alcohol abuse presents to ER by boyfriend with suicidal ideations. On admission noted with hyponatremia, Maroon stool
with concern for GI bleeding. In reviewing with patent she admits to work up in 2021 for anemia. She had recent black stools with alternating diarrhea and constipation and chronic GERD. She denies dysphagia, odynophagia, nausea, vomiting, or
abdominal pain. Last EGD 2021 normal esophagitis, portal HTN gastropathy bx portal HTN gastropathy colonoscopy- 2021 4 mm polyps in transverse colon, 3 polyps in sigmoid bx tubular adenoma, hyperplastic polyps. she also completed capsule with
ulcer in stomach and perhaps lyndon ulcer. SB normal. On admission hbg 9.8 with MCV 76.7 Na 125, bili 0.6, AST 45, ALT 28, alk phos 145. US with hepatic steatosis, limited vascular eval. portal vein appears patent with heptopedal flow.
-maroon stool on admission 04/27 rectal dark brown
-Microcytic anemia
-suicidal ideation on admission
-ETOH abuse
-hyponatremia
-hx lyndon lesion, portal gastropathy on prior EGD/capsule
-hx PVT and DVT on Eliquis prior to admission
other medical problems:
-hx pancreatitis
-HTN
-fatty liver
-colon polyps
PLAN:
Etiology of anemia with recent maroon stool related to PUD, Lyndon lesion, ectasia vs other
plan for EGD in AM
cont diet NPO for am
follow Na -- improved today
last Eliquis prior to admission cont to hold for EGD in AM
add iron studies
support given with stress and suicidal ideation on admission -s/p psych eval
counseled on ETOH and tobacco abstience
-
-
Thank you for consultation and allowing me to participate in the patient's care. Please call the it web development consultant GI physician during the after hours with any questions or concerns.
--- NOTE | 2024-04-27 15:36 | W.PN.UPDATE ---
Update Note
Progress Note Update
patient seen chart reviewed. spoke with nursing. events of the past 24 hours including passage of bloody stool noted. trying to convince this patient she needs to strongly consider in patient rehab but my sense is that likely will not happen. she
was already asking me when she could leave. i explained to her the ravages that etoh has wrought upon her body but i am not sure she was convinced. her bf who visited this am and whom she said evicted her yesterday ( he has since rescinded his
eviction) also drinks to excess. she asked me if adderall would help her. explained why i would not recommend adderall at this time or possibly at any time but that consideration of rx for adhd indeed whether adhd is present should be left for the
future and sobriety should be her overiding concern. that said she did seem better today with phenobarb and msas she is not longer sweating tremulous or confused. would continue w current meds . psych will follow
[2024-04-28] VITALS (18 sets, daily range): BP systolic 18–147; BP diastolic 48–87
--- NOTE | 2024-04-28 01:23 | PTCARENOTE ---
Pt received from previous shift in bed, asleep. AAOx3, forgetful (asking same questions). Telemetyr = SR. Full physical assessment documented (refer to worklist). Assisted x1 to BSC, pt w/unsteady gait unable to ambulate. Assisted w/bathing
cloths and gown changed. MSAS scores below 4 on assessments, no PRN administered. Clear liquids removed from bedside at MN. #22 LH and #22 LAC INTs patent. Bed alarm active for safety. Plan of care ongoing.
[2024-04-28 04:09] LABS: Hematocrit 28.4 % (37.0-47.0); Hemoglobin 9.3 g/dL (12.0-16.0); Mean Corp Hgb Conc. 32.7 g/dL (33.0-37.0); Mean Corpuscular Hgb 24.7 pg (27.0-31.0); Mean Corpuscular Volume 75.5 fL (81.0-99.0); Mean Platelet Volume 9.9 fL (7.4-10.4); Platelet Count 234 10^3/uL (130-400); Red Blood Cell Count 3.76 10^6/uL (4.20-5.40); Red Cell Dist. Width 17.5 % (11.5-14.5); White Blood Cell Count 13.1 10^3/uL (4.8-10.8)
[2024-04-28 04:44] LABS: ALT (SGPT) 25 U/L (0-35); AST (SGOT) 35 U/L (14-36); Albumin 3.9 g/dl (3.5-5.0); Alkaline Phosphatase 125 U/L (38-126); Blood Urea Nitrogen 9 mg/dl (7-17); Calcium 9.6 mg/dl (8.4-10.2); Carbon Dioxide 19 mmol/L (22-30); Chloride 99 mmol/L (98-107); Glucose 121 mg/dl (70-99); Potassium 4.7 mmol/L (3.5-5.1); Sodium 128 mmol/L (135-145); Total Bilirubin 0.9 mg/dl (0.2-1.3); Total Protein 6.5 g/dl (6.3-8.2); eGFR > 60.00
--- NOTE | 2024-04-28 07:25 | PTCARENOTE ---
Cannot verify VS captured from prior shift.
[2024-04-28] MEDS: DUONEB 3 ML INH (07:27)
--- NOTE | 2024-04-28 07:59 | W.PN.HOSP.TC ---
Today's Communication/Plan
-
see A/P
Assessment / Plan
Assessment / Plan
HPI: 58-year-old female with history of HTN, anemia, pancreatitis, DVT in RUE, chronic alcohol use disorder, smoker, who brought in by her boyfriend because she wanted to . Patient admitted to suicide ideation.
She appears anxious with hand tremor. She states that her last alcoholic drink was in the morning.
She follows with joy operator helper outpt for presumed RUE DVT. She stopped taking eliquis a few days ago as it was giving her bruises.
In the ED, her sodium level was noted to be low at 125. She was given normal saline and admitted for further management.
A/P:
# Hyponatremia likely from alcohol abuse and possible SIADH
Sodium level today at 128, was 125 on admission
cont fluid restrict
Follow BMP
# diarrhea, ?subacute, has resolved. Now suspect diarrhea may be a sign of alcohol withdrawal
Follow stool cultures, norovirus that were sent
C. difficile neg, stool parasites neg
Recc outpt GI work up if diarrhea recurs
# Alcohol use disorder
# Alcohol withdrawal
# Suicide ideation
Phenobarb taper and MSAS protocol
Psych on board
Pt declined BCare eval
# leukocytosis likely stress reaction
blood cultures negative
UA negative, afebrile
Follow WBC
# GIB with maroon stool
# chronic iron deficiency anemia
KAI WHAKARURUHAU Eliquis on hold
Cont Protonix IV BID
Iron panel confirmed MANUEL, B12/folate levels acceptable
start IV iron
GI on board, plan for endoscopy 04/28
# wheezing and cough 6/13 am, likely COPD exacerbation. This has resolved
CXR NAD
Cont duonebs ATC and PRN
DC further IV Decadron 4 mg IV BID
# ?h/o poral vein thrombosis
# h/o right upper extremity DVT
KAI WHAKARURUHAU Eliquis on hold
RUE US no DVT
Abd Doppler also noted patent portal vein
Pt follows up with a 'cancer doctor' outpatient, informed her to cont to follow outpt for Eliquis instruction. For now, cont to hold Eliquis
# Essential Hypertension
Blood pressure stable in ER
Cont Atenolol and lisinopril with hold parameter
# GERD
PPI continued
# Nicotine Dependence
Continue nicotine patch
Encourage smoking cessation
DVT proph: SCDs
CODE status-full code
Anticipated Discharge: 24 - 48 hours
Subjective/Interval History
-
Date of Service: April 28, 2024
Objective Data
-
Labs:
Laboratory Results
04/28/24
03:58
WBC 13.1 H
Hgb 9.3 L
Hct 28.4 L
Plt Count 234
Sodium 128 L
Potassium 4.7
Chloride 99
Carbon Dioxide 19 L
BUN 9
Creatinine 0.8
Glucose 121 H
Calcium 9.6
Total Bilirubin 0.9
AST 35
ALT 25
Alkaline Phosphatase 125
Vital Signs:
Vital Signs
Temp Pulse Resp BP Pulse Ox
36.8 C 85 22 105/70 94
04/28/24 04:04 04/28/24 00:00 04/28/24 00:00 04/28/24 00:00 04/28/24 00:45
I&O
04/27/24 04/28/24 04/29/24
06:59 06:59 06:59
Intake Total 240 / 240
Output Total 300 / 300 175 / 175
Balance -60 / -60 -175 / -175
Review of Systems
-
All other systems: Reviewed and negative
Abdomen/GI: Denies Abdominal Pain, Nausea or Diarrhea
Psych: Denies Anxious
Physical Exam
-
General: Well Developed, Well Nourished, No Apparent Distress, Comfortable and Conversant; Negative Respiratory Distress
HEENT: Normocephalic, Atraumatic, Nose Appears Normal and Ears Appear Normal; Negative Oxygen
Respiratory: Clear to Auscultation and Non Labored Respirations; Negative Wheezes or Accessory Resp Muscle Use
Cardiac: Regular Rhythm and S1/S2
GI: Soft, Nontender, Nondistended and Normal Bowel Sounds
Skin: Warm and Dry
Neuro: Awake and Alert
Psych: Calm and Intact Judgement/Insight (somewhat)
Data Reviewed
-
Diagnostic Radiology: Image personally visualized and interpreted and Report Reviewed by me
Medical Tests (Nuc Med, Echo etc): Report Reviewed by me (US)
Labs: Labs Reviewed by me
[2024-04-28] MEDS: NICODERM TRANSDERMAL 21 MG TRANSDERM (10:09)
[2024-04-28] MEDS: PHENOBARBITAL 97.5 MG IV ×2 (10:10→17:27)
[2024-04-28] MEDS: THIAMINE INJECTION 200 MG IV ×2 (10:10→19:47)
[2024-04-28] MEDS: ZESTRIL 40 MG PO (10:11)
[2024-04-28] MEDS: TENORMIN 50 MG PO (10:11)
[2024-04-28] MEDS: FOLVITE 1 MG PO (10:11)
[2024-04-28] MEDS: PROTONIX IV 40 MG IV ×2 (10:11→19:47)
[2024-04-28] MEDS: NSS (PRESERVATIVE FREE) 10 ML IV ×2 (10:11→19:47)
[2024-04-28] MEDS: DUONEB INH (11:17)
--- NOTE | 2024-04-28 13:43 | W.PN.UPDATE ---
Update Note
Progress Note Update
patient seen chart reviewed. spoke with nursing. mrs shore is doing reasonably well from the standpoint of withdrawal with the phenobarb on board but she has still required prn ativan. she is not however getting the message that sobriety will
demand work and some tools to keep from drinking again. she turned down the opportunity to talk to bcares. i tried to persuade her to reconsider but she would not budge. she refuses in patient or out pt rehab insists 'i will be fine...i can be
sober' says bf the same one who 'evicted' her will help her to be sober 'he won't let me drink' pointed out to her that in the days before admission he was there and she was drinking a lot. also reminded her of how bad she felt at the time of
admission which she seems to have forgotten and reminded her of what etoh has done to her body but she was not moved. at this point we cannot commit her to rehab. she can do as she chooses but i told her i am not optimistic about her changes for
sobriety if she does not get some help. she said she will reconsider if she relapses. no changes made in her medications for psych
[2024-04-28] MEDS: FERRLECIT 110 MG IV (14:47)
--- NOTE | 2024-04-28 15:22 | PTCARENOTE ---
Pt presents as assessed. Aox3. MSAS as documented. Climbing OOB and setting off bed alarm, but able to be redirected. NSR on tele monitor. To and from GI lab via stretcher. Tolerating diet. Bed alarm remains in place in for safety. Call [facility]o within
reach.
[2024-04-28] MEDS: PHENOBARBITAL 65 MG IV (21:01)
[2024-04-29] VITALS: BP 128/75
--- NOTE | 2024-04-29 00:31 | PTCARENOTE ---
assumed care of patient, MSAS remains low 0-4. pt able to sit at side of bed and wash up. slightly forgetful and setting off bed alarm at times. VSS. care ongoing.
[2024-04-29 02:00] VITALS: BP 103/66
[2024-04-29 04:00] VITALS: BP 144/80
[2024-04-29] MEDS: ATIVAN 1 MG PO (04:20)
[2024-04-29 04:34] LABS: Hematocrit 28.7 % (37.0-47.0); Hemoglobin 9.2 g/dL (12.0-16.0); Mean Corp Hgb Conc. 32.1 g/dL (33.0-37.0); Mean Corpuscular Hgb 24.5 pg (27.0-31.0); Mean Corpuscular Volume 76.5 fL (81.0-99.0); Mean Platelet Volume 9.9 fL (7.4-10.4); Platelet Count 241 10^3/uL (130-400); Red Blood Cell Count 3.75 10^6/uL (4.20-5.40); Red Cell Dist. Width 17.8 % (11.5-14.5); White Blood Cell Count 10.8 10^3/uL (4.8-10.8)
[2024-04-29 04:59] LABS: ALT (SGPT) 27 U/L (0-35); AST (SGOT) 43 U/L (14-36); Albumin 3.4 g/dl (3.5-5.0); Alkaline Phosphatase 132 U/L (38-126); Blood Urea Nitrogen 10 mg/dl (7-17); Calcium 9.4 mg/dl (8.4-10.2); Carbon Dioxide 21 mmol/L (22-30); Chloride 99 mmol/L (98-107); Glucose 100 mg/dl (70-99); Sodium 129 mmol/L (135-145); Total Bilirubin 0.4 mg/dl (0.2-1.3); Total Protein 5.9 g/dl (6.3-8.2); eGFR > 60.00
[2024-04-29 06:00] VITALS: BP 101/63
--- NOTE | 2024-04-29 07:36 | W.PN.HOSP.TC ---
Addendum entered and electronically signed by Marva Elizalde MD 04/29/24 14:18:
total DC time 35 min
Original Note:
Today's Communication/Plan
-
DC home today
Assessment / Plan
Assessment / Plan
HPI: 58-year-old female with history of HTN, anemia, pancreatitis, DVT in RUE, chronic alcohol use disorder, smoker, who brought in by her boyfriend because she wanted to . Patient admitted to suicide ideation.
She appears anxious with hand tremor. She states that her last alcoholic drink was in the morning.
She follows with chain machine operator outpt for presumed RUE DVT. She stopped taking eliquis a few days ago as it was giving her bruises.
In the ED, her sodium level was noted to be low at 125. She was given normal saline and admitted for further management.
A/P:
# Hyponatremia likely from alcohol abuse and possible SIADH
Sodium level today at 129, was 125 on admission
cont fluid restrict
Follow BMP outpt with PCP
# diarrhea, ?subacute, has resolved. Now suspect diarrhea may be a sign of alcohol withdrawal
stool culture negative, C. difficile neg, stool parasites neg
Recc outpt GI work up if diarrhea recurs
# Alcohol use disorder
# Alcohol withdrawal
# Suicide ideation
Phenobarb taper and MSAS protocol during hospital stay, would not need further after discharge
Psych on board
Pt declined [facility] eval
She has been counselled extensively by myself wrt alcohol cessation
# leukocytosis likely stress reaction, resolved
blood cultures negative
UA negative, afebrile
# GIB with maroon stool
[employer] Eliquis on hold
s/p EGD 04/28, noted Non-bleeding gastric ulcer with no stigmata of bleeding. Biopsied.
GI recc protonix 40 mg bid for 6 weeks then daily, repeat EGD in 3 months, follow up with GI for pathology results in 2 weeks.
# chronic iron deficiency anemia
Iron panel confirmed MANUEL, B12/folate levels acceptable
started IV iron during hospital stay, can DC with PO iron sulfate
# wheezing and cough 6/13 am, likely COPD exacerbation. This has resolved
CXR NAD
Cont duonebs ATC and PRN
off IV Decadron
# ?h/o poral vein thrombosis
# h/o right upper extremity DVT
[employer] Eliquis on hold
RUE US no DVT
Abd Doppler also noted patent portal vein
Pt follows up with a 'cancer doctor' outpatient, informed her to cont to follow outpt for Eliquis instruction. For now, cont to hold Eliquis
# Essential Hypertension
Blood pressure stable in ER
Cont Atenolol and lisinopril with hold parameter
# GERD
PPI continued
# Nicotine Dependence
Continue nicotine patch
Encourage smoking cessation
# Insomnia
recc to use melatonin going forward (and not alcohol) for insomnia
DVT proph: SCDs
CODE status-full code
DW RN
Anticipated Discharge: Today
Subjective/Interval History
-
Date of Service: April 29, 2024
Objective Data
-
Labs:
Laboratory Results
04/29/24 04/29/24
04:16 04:17
WBC 10.8
Hgb 9.2 L
Hct 28.7 L
Plt Count 241
Sodium 129 L
Potassium 4.0
Chloride 99
Carbon Dioxide 21 L
BUN 10
Creatinine 0.9
Glucose 100 H
Calcium 9.4
Total Bilirubin 0.4
AST 43 H
ALT 27
Alkaline Phosphatase 132 H
Vital Signs:
Vital Signs
Temp Pulse Resp BP Pulse Ox
37.1 C 67 20 101/63 94
04/29/24 02:44 04/29/24 06:00 04/29/24 06:00 04/29/24 06:00 04/28/24 20:17
I&O
04/28/24 04/29/24 04/30/24
06:59 06:59 06:59
Output Total 175 / 175
Balance -175 / -175
Review of Systems
-
All other systems: Reviewed and negative
Abdomen/GI: Denies Abdominal Pain, Nausea or Diarrhea
Psych: Denies Anxious
Physical Exam
-
General: Well Developed, Well Nourished, No Apparent Distress, Comfortable and Conversant; Negative Respiratory Distress
HEENT: Normocephalic, Atraumatic, Nose Appears Normal and Ears Appear Normal; Negative Oxygen
Respiratory: Clear to Auscultation and Non Labored Respirations; Negative Wheezes or Accessory Resp Muscle Use
Cardiac: Regular Rhythm and S1/S2
GI: Soft, Nontender, Nondistended and Normal Bowel Sounds
Skin: Warm and Dry
Neuro: Awake and Alert
Psych: Calm and Intact Judgement/Insight (somewhat)
Data Reviewed
-
Diagnostic Radiology: Image personally visualized and interpreted and Report Reviewed by me
Medical Tests (Nuc Med, Echo etc): Report Reviewed by me (US)
Labs: Labs Reviewed by me
--- NOTE | 2024-04-29 07:54 | PTCARENOTE ---
Report rec'd from manager [employer] RN, plan discussed with attending Dr. Elizalde. Pt will be discharged to home this am. Pt in agreement. meds as documented-pt will need to get ride home as MD stated she should not drive today.
[2024-04-29 08:00] VITALS: BP 125/84
[2024-04-29 08:27] VITALS: BP 137/91
[2024-04-29] MEDS: TENORMIN 50 MG PO (08:27)
[2024-04-29] MEDS: FOLVITE 1 MG PO (08:28)
[2024-04-29] MEDS: NICODERM TRANSDERMAL 21 MG TRANSDERM (08:29)
[2024-04-29] MEDS: ZESTRIL 40 MG PO (08:30)
[2024-04-29] MEDS: PROTONIX IV 40 MG IV (08:31)
[2024-04-29] MEDS: PHENOBARBITAL 65 MG IV (08:31)
[2024-04-29] MEDS: NSS (PRESERVATIVE FREE) 10 ML IV (08:32)
[2024-04-29] MEDS: THIAMINE INJECTION IV (08:32)
[2024-04-29] MEDS: ANESTHETIC LOZENGE 1 LOZENGE PO (08:47)
--- NOTE | 2024-04-29 10:00 | PTCARENOTE ---
Pt sent home with friend, no further needs.
--- NOTE | 2024-04-29 11:19 | CM ---
CM reviewed chart and noted dc order
Pt left prior to CM meeting with her
Plan for home no needs
--- NOTE | 2024-04-29 13:36 | W.DCSUMMARY ---
Discharge Summary
Discharge Data
Date of Admission: 04/26/24
Date of Discharge: 04/29/24
-
Pending Results: No
Hospital Course
Principal Diagnosis:
Alcohol withdrawal in setting of alcohol use disorder
Suicide ideation
Hyponatremia due to alcohol abuse and possible Syndrome of inappropriate�antidiuretic�hormone ADH release (SIADH)
Gastrointestinal bleeding with maroon stool with finding of gastric ulcer this admission
Chronic Diagnoses:�
Chronic iron deficiency anemia
History of poral vein thrombosis per patient
History of right upper extremity DVT per patient
Essential Hypertension
Gastroesophageal reflux disease
Nicotine Dependence
Consultations:�
Gastroenterology
Psychiatry
Procedures:�
Upper endoscopy 04/28, noted Non-bleeding gastric ulcer with no stigmata of bleeding. Biopsied.
Clinical course:�
This is a 58-year-old female with past medical history as stated above, who was brought in by her boyfriend because she wanted to . She also admitted to drinking excessive amounts of alcohol.
Problem 1:
Alcohol withdrawal in setting of alcohol use disorder.
The patient also admitted to suicidal ideation initially on admission.
She was covered with MSAS protocol and was treated with phenobarbital taper for her alcohol withdrawal during her hospital stay.
Of note, her alcohol use disorder was associated with hyponatremia and possible SIADH.
Her sodium level was at 129 on the day of discharge. She can continue fluid restriction following discharge.
She also complained of subacute diarrhea (resolved), which was likely due to alcohol withdrawal. Her stool studies were negative.
She was seen by psychiatrist, and she declined any outpatient therapy.
Problem 2:
Gastrointestinal bleeding with maroon stool.
Her prior to admission Eliquis was held.
She underwent EGD on 04/28, which noted non-bleeding gastric ulcer with no stigmata of bleeding. This was biopsied, and the patient can follow-up the biopsy result with her GI doctor outpatient.
She can continue Protonix 40 mg twice daily for 6 weeks, then daily after that.
She can follow-up outpatient for repeat EGD in 3 months to evaluate healing of the ulcer.
Of note, she has been informed to follow-up with her asian studies professor outpatient with regard to her Eliquis.
She apparently was on Eliquis for her history of portal vein thrombosis and right upper extremity DVT, both have been ruled out this admission.
As for the rest of her medical problems, they were stable during her hospital stay.
Discharge Plan
-
Patient Disposition: Home (Routine Discharge)
Discharge Diagnosis/Procedures: Hyponatremia due to alcohol abuse and possible SIADH; Alcohol use disorder with alcohol withdrawal on admission; gastrointestinal bleed with gastric ulcer (biopsied) noted on EGD; Portal hypertensive gastropathy.
Condition: Fair
Diet: As tolerated, Low Fat and Low Cholesterol
Additional Diets: avoid drinking alcohol
Activity: As tolerated
Driving Restrictions: Not until seen by your Dr
Activity Restrictions/Additional Instructions:
Follow up with GI doctor for pathology results in 2 weeks.
Repeat EGD with GI in 3 months
Referrals:
Garrison Harding MD [Active] -
UNKNOWN,NO INTERVIEW [Family Provider] - in less than 1 week
Additional Discharge Medication Instructions: Hold Eliquis for now until further directed by your cancer doctor.
Continue protonix 40 mg twice daily for 6 weeks then daily after that.
Continue with iron supplementation for your iron deficiency (iron can cause mild constipation)
You may take melatonin to help with your sleep
STOP Aleve (it can make cause stomach ulcer)
Prescriptions:
New
pantoprazole [Protonix] 40 mg tablet,delayed release (DR/EC)
40 mg PO BID Qty: 120 0RF
melatonin 5 mg tablet
5 mg PO HS PRN (Reason: Sleep) Qty: 30 0RF
ferrous sulfate 325 mg (65 mg iron) tablet
325 mg PO DAILY Qty: 30 0RF
Continued
atenolol 50 mg Tablet
50 mg PO DAILY
simethicone [Gas Relief 80 (simethicone)] 80 mg Tablet,Chewable
80 mg PO TIDPRN PRN (Reason: gas relief)
tizanidine 4 mg Tablet
4 mg PO Q8HPRN PRN (Reason: muscle spasms)
lisinopril 40 mg Tablet
40 mg PO DAILY
Held
Eliquis 2.5 mg Tablet
2.5 mg PO BID
Hold Instructions: Resume on 05/05/24. until further directed by your cancer doctor
Patient Comments:
patient claims medication was stopped by provider
Discontinued
omeprazole 20 mg Tablet,Delayed Release (Dr/Ec)
20 mg PO DAILY
naproxen sodium [Aleve] 220 mg Tablet
440 mg PO DAILYPRN PRN (Reason: mild pain)
Discharge Orders:
Discharge Patient (As Directed); Ordered 04/29/24
Ordered By: Marva Elizalde
Discharge Date and Time
Discharge Date/Time: 04/29/24 09:45
Print Language: BRITISH
== END 2024-04-29 09:45 | disposition home or self-care (01) | DRG 643 ==
LOC: IMU 15:18
PROVIDERS: Internal Medicine Gastroenterology; Nurse Practitioner Family; Registered Nurse; ADMITTING PHYSICIAN Internal Medicine; CONSULT PHYSICIAN Internal Medicine; CONSULT PHYSICIAN Psychiatry & Neurology Psychiatry; EMERGENCY PHYSICIAN Emergency Medicine
PROC: 0DB68ZX Excision of Stomach, Via Natural or Artificial Opening Endoscopic, Diagnostic (ICD-10-PCS; 2024-04-28)
DX: E22.2 Syndrome of inappropriate secretion of antidiuretic hormone (principal); K25.4 Chronic or unspecified gastric ulcer with hemorrhage; F10.139 Alcohol abuse with withdrawal, unspecified; R45.851 Suicidal ideations; K76.6 Portal hypertension; J44.1 Chronic obstructive pulmonary disease with (acute) exacerbation; D50.9 Iron deficiency anemia, unspecified; I10 Essential (primary) hypertension; K21.00 Gastro-esophageal reflux disease with esophagitis, without bleeding; F17.200 Nicotine dependence, unspecified, uncomplicated; K31.89 Other diseases of stomach and duodenum; R25.1 Tremor, unspecified; Z86.718 Personal history of other venous thrombosis and embolism
CPT/HCPCS: 88305; 71045; 76700; 80048; 80053; 80143; 80179; 80306; 81003; 82010; 82077; 82607; 82728; 82746; 82977; 83540; 83550; 83605; 83690; 83735; 83930; 83935; 84100; 84300; 84443; 85014; 85018; 85025; 85027; 85379; 85610; 85730; 87040; 87045; 87046; 87324; 87427; 87449; 87798; 88342; 89055; 93005; 93971; 93975; 94640; 96360; 99284; J2916

== ENCOUNTER → 2024-08-04 06:16 | Day surgery (SDC) | payer OTHER, SELFPAY | LOC: GI 06:16 | PROVIDERS: ATTENDING PHYSICIAN Specialist | DX: K76.6 Portal hypertension (principal); Z87.11 Personal history of peptic ulcer disease | CPT/HCPCS: 43235 ==

== ENCOUNTER → 2025-07-24 14:31 | Outpatient (REF) | payer OTHER, SELFPAY | LOC: MRI 14:31 | PROVIDERS: ATTENDING PHYSICIAN Specialist; FAMILY PHYSICIAN Internal Medicine | DX: K70.9 Alcoholic liver disease, unspecified (principal) | CPT/HCPCS: 74181; 76391 ==